=== PATIENT | male | born 1955 ===

== ENCOUNTER 2016-10-02 06:02 | Day surgery (SDC) | payer BC, OTHER ==
[~2016-10-02 06:02] MED LIST: Lactated Ringers 1,000 ML IV SCH
[2016-10-02] MEDS ORDERED: Lactated Ringers 1,000 ML IV ONE (07:49)
[2016-10-02] MEDS ORDERED: SUBLIMAZE 100 MCG/2 ML IV ONE (08:00)
[2016-10-02] MEDS ORDERED: DIPRIVAN 200 MG/20 ML IV ONE (08:00)
[2016-10-02] MEDS ORDERED: Versed 2 MG/2 ML Injection IV ONE (08:00)
[2016-10-02 08:56] VITALS: BP 113/77; PULSE 55; O2SAT 97
--- NOTE | 2016-10-02 08:56 | OP ---
SURGERY DATE/TIME: 10/02/2016 0700 PREOPERATIVE DIAGNOSIS: Screening colonoscopy. POSTOPERATIVE DIAGNOSES: 1) Normal colon. 2) Incomplete exam. PROCEDURE: Colonoscopy. SURGEON: Hal Hein M.D. ANESTHESIA: MAC by Flaco Cohen CRNA. ESTIMATED BLOOD LOSS: None. SPECIMENS: None. DESCRIPTION OF PROCEDURE: After informed written consent was obtained, the patient was taken to the endoscopy suite. He underwent monitored anesthesia and digital rectal exam showed normal sphincter tone and no internal lesions. The scope was inserted in the rectum and sequentially the colonic mucosa was traversed with great difficulty as the patient had a tortuous colon. The level of hepatic flexure was reached and after multiple attempts was not able to be traversed any further. Upon withdrawal the mucosa all appeared normal from the level of the hepatic flexure distally. Prior to withdrawal retroflexion showed no internal lesions. The scope was removed and the patient was transferred to the recovery room in excellent condition. I have ordered barium enema to complete his examination due to incomplete exam at this time. I discussed the findings with his .
== END 2016-10-02 09:27 | disposition home or self-care (01) ==
LOC: SDC 06:02
PROVIDERS: ATTEND Family Medicine
PROC: 0DJD8ZZ Inspection of Lower Intestinal Tract, Via Natural or Artificial Opening Endoscopic (ICD-10-PCS; principal; 2016-10-02)
DX: Z12.11 Encounter for screening for malignant neoplasm of colon (principal)
CPT/HCPCS: 00810; J2250; J2704; J3010